=== PATIENT | female | born 1940 | race Caucasian/White ===

== ENCOUNTER → 2016-07-24 | Outpatient (CLI) | payer OTHER ==
[~2016-07-24] MED LIST: ALBU8.5H5 INH; ALPRazolam 1MG TABLET ONE; AZIT500T PO; CEFD300C2 PO; CETI1TAB6 PO; CHOL5000 PO; CHRO1TAB6 PO; DM/P295L11 PO; FLUT1DIS3 INH; FURO-92 PO; FURO-93 PO; GADOBUTROL 10 MMOL/10 ML PFS ONE; GLUC1500 PO; HYDR25TA11 PO; HYDR50TA13 PO; IBUP-1222 PO; IPRA3AMP NPPB; LEVO500T33 PO; LISI1TAB7 PO; MINO100C PO; MULT-208 PO; POTA20TA14 PO; PRED10TA PO; PRED1DRO RIGHTEYE; PRED20TA PO; RANI150T8 PO; TIOT18CA INH; VARE1TAB20 PO; VIT D; [UNRECOGNIZED DRUG - OTHER]; [UNRECOGNIZED DRUG - OTHER] PO; steroid eye drops
== END | disposition home or self-care (01) ==
LOC: RAD 13:06
PROVIDERS: ATTEND Ophthalmology
DX: H53.131 Sudden visual loss, right eye (principal); I67.82 Cerebral ischemia; G31.9 Degenerative disease of nervous system, unspecified; G93.89 Other specified disorders of brain; R90.82 White matter disease, unspecified; E11.9 Type 2 diabetes mellitus without complications; T50.8X1A Poisoning by diagnostic agents, accidental (unintentional), initial encounter
CPT/HCPCS: 36415; 70543; 70553; 82565; A9585

== ENCOUNTER → 2017-10-05 | Outpatient (CLI) | payer OTHER ==
[~2017-10-05] MED LIST changes: -ALPRazolam 1MG TABLET ONE; -CEFD300C2 PO; +CEFD300C37 PO; -GADOBUTROL 10 MMOL/10 ML PFS ONE; -GLUC1500 PO; +GLUC15006 PO; -LEVO500T33 PO; +LEVO500T47 PO; +RANI150T23 PO; -RANI150T8 PO
== END | disposition home or self-care (01) ==
LOC: CFH 09:33
PROVIDERS: ATTEND Nurse Practitioner
DX: R91.8 Other nonspecific abnormal finding of lung field (principal); J44.9 Chronic obstructive pulmonary disease, unspecified; I34.8 Other nonrheumatic mitral valve disorders; Z90.49 Acquired absence of other specified parts of digestive tract
CPT/HCPCS: 71250

== ENCOUNTER → 2017-12-31 | Outpatient (CLI) | payer OTHER ==
[~2017-12-31] MED LIST changes: -IPRA3AMP NPPB; +IPRA3AMP30 NPPB
== END | disposition home or self-care (01) ==
LOC: CFH 15:17
PROVIDERS: ATTEND Nurse Practitioner
DX: R91.8 Other nonspecific abnormal finding of lung field (principal); J44.9 Chronic obstructive pulmonary disease, unspecified; F17.200 Nicotine dependence, unspecified, uncomplicated
CPT/HCPCS: 71250

== ENCOUNTER → 2020-01-26 | Outpatient (CLI) | payer MEDICARE ==
[~2020-01-26] MED LIST changes: +HYDR-826 PO; -HYDR25TA11 PO; -HYDR50TA13 PO; +HYDR50TA99 PO; +LISI1TAB20 PO; -LISI1TAB7 PO; -MINO100C PO; +MINO100C61 PO; +RANI-467 PO; -RANI150T23 PO
== END | disposition home or self-care (01) ==
LOC: CFH 09:57
PROVIDERS: ATTEND Internal Medicine
DX: Z12.2 Encounter for screening for malignant neoplasm of respiratory organs (principal); J84.10 Pulmonary fibrosis, unspecified; J98.4 Other disorders of lung; F17.210 Nicotine dependence, cigarettes, uncomplicated
CPT/HCPCS: G0297